=== PATIENT | female | born 1965 | race Caucasian/White ===

== ENCOUNTER → 2018-02-19 | Outpatient (CLI) | payer OTHER ==
[~2018-02-19] MED LIST: MAXALT10 MG PO
== END | disposition home or self-care (01) ==
LOC: CDC 08:12
DX: Z01.810 Encounter for preprocedural cardiovascular examination (principal); C50.411 Malignant neoplasm of upper-outer quadrant of right female breast; R94.31 Abnormal electrocardiogram [ECG] [EKG]
CPT/HCPCS: 93000